=== PATIENT | female | born 1960 | race Caucasian/White ===

== ENCOUNTER 2016-09-12 09:29 | Emergency (ER) | payer OTHER ==
[~2016-09-12] VITALS: Ht 157.5 cm; Wt 87.8 kg
[~2016-09-12 09:29] MED LIST: ABILIFY30 MG PO; ADVAIR 250/501 DISK IH; ALEVE220 M2 PO; AMBIEN CR12.5 MG PO; AMBIEN10 MG PO; ATARAX,VISTARIL25 MG PO; BENZTROPINE ME0.5 MG PO; CLINDAMYCIN HC300 MG PO; CLONAZEPAM1 MG PO; CLONAZEPAM2 MG; COGENTIN2 MG PO; COLACE100 MG PO; COUMADIN,JANTOVE1 MG PO; CYMBALTA60 MG PO; DESYREL100 MG PO; DICLOFENAC SODI75 MG PO; DILAUDID2 MG PO; DOCUSATE SODIU100 MG PO; ENDOCET 5-3251 EACH PO; FEOSOL325 MG PO; FLAGYL500 MG PO; FLOVENT DISKUS1 DISK IH; Flovent 110 mcg IH; GLIPIZIDE5 MG PO; GLUCOPHAGE1000 MG PO; Glucotrol PO; HUMULIN N100 UNIT/1 SQ; HUMULIN R100 UNITS/ SC; HYDROXYZINE PAM50 MG PO; KLONOPIN2 MG PO; LANTUS 10100 UNITS/ SC; LEVAQUIN750 MG PO; LIDODERM 5% P1 PATCH TP; LYRICA75 MG PO; MELOXICAM15 MG PO; MICONAZOLE NITR30 GM TP; NAPROXEN SODIU275 MG PO; NOVOLIN R (UNI1 UNIT SC; NOVOLOG 10100 UNITS/ SC; NovoLIN N (NPH),Humu SC; PERCOCET 5/31 TABLET PO; PRAVASTATIN SOD40 MG PO; PRILOSEC40 MG PO; PRISTIQ100 MG PO; PROAIR HFA8.5 GM IH; PROMETHAZINE HC25 M1 PO; Proventil,Ventolin H IH; RISPERDAL0.5 MG PO; RISPERDAL1 MG PO; Robitussin, Organidi PO; SENOKOT S,PE1 TABLET PO; SPRYCEL70 MG PO; STOOL SOFTENER100 MG PO; TRICOR145 MG PO; Tylenol Regular Stre PO; ZESTRIL,PRINIVI20 MG PO; ZESTRIL40 MG PO; ZOFRAN4 MG PO; Zocor PO; predniSONE PO
[2016-09-12 11:10] LABS: EOSINOPHIL (%) 0.6 % (0-5); EOSINOPHIL COUNT 0.1 K/uL (0-0.3); HEMATOCRIT 37.1 % (36.0-46.0); IMMATURE GRANULOCYTE (%) 0.6 % (0.0-0.7); IMMATURE GRANULOCYTE COUNT 0.1 K/uL; INSTRUMENT ABS NEUTROPHIL CT 9.4 K/uL; LYMPHOCYTE COUNT 1.6 K/uL (1.0-2.8); MCH 25.1 PG (29.0-34.0); MCHC 32.1 G/DL (30.0-36.0); MCV 78.3 FL (83-99); MEAN PLAT.VOLUME 10.8 uM^3 (9.5-12.4); MONOCYTE (%) 9.4 % (3-12); MONOCYTE COUNT 1.2 K/uL (0-0.8); NEUTROPHIL (%) 76.4 % (45-76); NEUTROPHIL COUNT 9.4 K/uL (1.8-6.4); RBC DIS.WIDTH-CV 16.2 % (11.8-14.6); RBC DIS.WIDTH-SD 45.8 % (39-53); RED BLOOD COUNT 4.74 M/uL (3.80-5.20); WHITE BLOOD COUNT 12.3 K/uL (4.1-10.2)
[2016-09-12 11:22] LABS: PLATELET COUNT 266 K/uL (156-360)
[2016-09-12 11:30] LABS: CHLORIDE 104 mEq/L (99-109); POTASSIUM 4.5 mEq/L (3.7-5.4); SODIUM 139 mEq/L (136-147)
[2016-09-12 11:32] LABS: GLUCOSE 201 mg/dL (70-99)
[2016-09-12 11:34] LABS: ANION GAP 11 MEQ/L (2-14); TOTAL BILIRUBIN 0.7 mg/dL (0.0-1.0)
[2016-09-12 11:36] LABS: ALKALINE PHOSPHATASE 129 IU/L (3-129); GFR ESTIMATE (CALCULATED) > 59 mL/min/
[2016-09-12 11:37] LABS: UREA NITROGEN (BUN) 15 mg/dL (9-23)
[2016-09-12 11:39] LABS: LIPASE 20 U/L (1.0-51.0)
[2016-09-12 12:18] LABS: ADD MIUA? YES; BILIRUBIN SMALL; BLOOD NEGATIVE; COLOR YELLOW ((YELLOW)); GLUCOSE (STRIP) 150; KETONES 5; LEUKOCYTES SMALL; NITRITE NEGATIVE; PROTEIN (STRIP) 30; SPECIFIC GRAVITY 1.021 (1.000-1.030); UROBILINOGEN 0.2 MG/DL (0.2-1.0)
[2016-09-12 12:23] LABS: BACTERIA 2+ /HPF; EPITHELIAL CELLS 2+ /HPF; MUCUS TRACE /LPF; RED BLOOD CELLS 0-5 /HPF (0-5); UCUL ADDED? NO; WHITE BLOOD CELLS NONE SEEN /HPF (0-5)
[2016-09-12] MEDS ORDERED: CIPRO500 MG PO ×2 (12:45→13:17)
[2016-09-12] MEDS ORDERED: FLAGYL500 MG PO ×2 (12:45→13:17)
[2016-09-12] MEDS ORDERED: TYLENOL WITH C1 EACH PO (12:45)
[2016-09-12] MEDS ORDERED: CLONAZEPAM1 MG PO (13:01)
[2016-09-12] MEDS ORDERED: LABETALOL HCL100 MG PO (13:02)
[2016-09-12] MEDS ORDERED: ONDANSETRON ODT4 MG PO (13:02)
[2016-09-12] MEDS ORDERED: FUROSEMIDE PO (13:04)
[2016-09-12] MEDS ORDERED: POTASSIUM PO (13:04)
[2016-09-12 13:35] VITALS: BP 152/83
== END 2016-09-12 13:45 | disposition home or self-care (01) ==
LOC: EME 09:29
PROVIDERS: Emergency Medicine
DX: K52.9 Noninfective gastroenteritis and colitis, unspecified (principal); C95.90 Leukemia, unspecified not having achieved remission; I10 Essential (primary) hypertension; E78.5 Hyperlipidemia, unspecified; J45.909 Unspecified asthma, uncomplicated; Z79.4 Long term (current) use of insulin; E11.9 Type 2 diabetes mellitus without complications; Z87.442 Personal history of urinary calculi
CPT/HCPCS: 74176; 80053; 81003; 83690; 85025; 99281; 99285; J1885; J2405; J7030

== ENCOUNTER 2017-06-27 18:04 | Observation (INO) | payer OTHER ==
[~2017-06-27] VITALS: Ht 157.5 cm; Wt 89.9 kg
[~2017-06-27 18:04] MED LIST changes: +CIPRO500 MG PO; +FUROSEMIDE PO; +LABETALOL HCL100 MG PO; +ONDANSETRON ODT4 MG PO; +POTASSIUM PO; +TYLENOL WITH C1 EACH PO
[2017-06-27 20:11] LABS: HEMATOCRIT 40.3 % (36.0-46.0); HEMOGLOBIN 12.9 G/DL (11.9-15.5); MCH 25.5 PG (29.0-34.0); MCV 79.6 FL (83-99); PLATELET COUNT 227 K/uL (156-360); RBC DIS.WIDTH-CV 15.5 % (11.8-14.6); RBC DIS.WIDTH-SD 44.5 % (39-53); RED BLOOD COUNT 5.06 M/uL (3.80-5.20); WHITE BLOOD COUNT 10.3 K/uL (4.1-10.2)
[2017-06-27 20:36] LABS: APPEARANCE CLEAR ((CLEAR)); BILIRUBIN NEGATIVE; BLOOD NEGATIVE; COLOR YELLOW ((YELLOW)); GLUCOSE (STRIP) NEGATIVE; KETONES NEGATIVE; LEUKOCYTES TRACE; NITRITE NEGATIVE; PROTEIN (STRIP) NEGATIVE; SPECIFIC GRAVITY 1.009 (1.000-1.030); UROBILINOGEN 0.2 MG/DL (0.2-1.0)
[2017-06-27 20:41] LABS: CHLORIDE 102 mEq/L (99-109); POTASSIUM 4.9 mEq/L (3.7-5.4); SODIUM 137 mEq/L (136-147)
[2017-06-27 20:42] LABS: GLUCOSE 139 mg/dL (70-99)
[2017-06-27 20:46] LABS: CREATININE 1.1 mg/dL (0.6-1.3); GFR ESTIMATE (CALCULATED) 55 mL/min/; SERUM ETHYL ALCOHOL < 10 mg/dL
[2017-06-27 20:47] LABS: UREA NITROGEN (BUN) 22 mg/dL (9-23)
[2017-06-27 20:49] LABS: AMPHETAMINE NEGATIVE (500 ng/mL); BARBITURATES NEGATIVE (200 ng/mL); BENZODIAZEPINES NEGATIVE (150 ng/mL); BUPRENORPHINE NEGATIVE (10 ng/mL); COCAINE NEGATIVE (150 ng/mL); METHADONE NEGATIVE (200 ng/mL); METHAMPHETAMINE NEGATIVE (500 ng/mL); OPIATES (MORPHINE) NEGATIVE (100 ng/mL); OXYCODONE PRESUMPTIVE POSITIVE (100 ng/mL); PHENCYCLIDINE NEGATIVE (25 ng/mL); PROPOXYPHENE NEGATIVE (300 ng/mL); THC CANNABINOIDS NEGATIVE (50 ng/mL); TRICYCLIC ANTIDEPRESSANTS PRESUMPTIVE POSITIVE (300 ng/mL)
[2017-06-27 21:07] LABS: BACTERIA NONE SEEN /HPF; EPITHELIAL CELLS RARE /HPF; HYALINE CASTS 0-5 /LPF; MUCUS TRACE /LPF; RED BLOOD CELLS 0-5 /HPF (0-5); UCUL ADDED? NO; WHITE BLOOD CELLS 0-5 /HPF (0-5)
[2017-06-28] VITALS (9 sets, daily range): BP systolic 80–128; BP diastolic 45–72
[2017-06-28] MEDS ORDERED: FLEXERIL5 MG PO (13:53)
[2017-06-28] MEDS ORDERED: OXYCODONE HCL10 MG PO (13:53)
[2017-06-28] MEDS ORDERED: LYRICA100 MG PO (13:54)
[2017-06-28] MEDS ORDERED: ZANAFLEX4 M1 PO (13:54)
[2017-06-28] MEDS ORDERED: FLOVENT DISKUS1 DIS1 IH (13:54)
[2017-06-28] MEDS ORDERED: OXYMORPHONE HCL20 MG PO (13:54)
[2017-06-28] MEDS ORDERED: AMBIEN10 MG PO (13:55)
[2017-06-28] MEDS ORDERED: PRISTIQ50 MG PO (13:56)
[2017-06-28] MEDS ORDERED: VENTOLIN HFA18 GM IH (13:56)
[2017-06-28] MEDS ORDERED: FLONASE16 G1 BOTH NARES (13:57)
[2017-06-28] MEDS ORDERED: ENDOCET 5-3251 EACH PO (13:59)
[2017-06-28] MEDS ORDERED: ONDANSETRON ODT4 MG PO (14:00)
[2017-06-28] MEDS ORDERED: KLONOPIN1 MG PO (14:00)
[2017-06-28] MEDS ORDERED: RISPERDAL1 MG PO (14:00)
[2017-06-28] MEDS ORDERED: ALLEGRA ALLERG180 MG PO (14:01)
[2017-06-28] MEDS ORDERED: SINGULAIR10 MG PO (14:02)
[2017-06-28] MEDS ORDERED: ZESTRIL40 MG PO (14:02)
[2017-06-28] MEDS ORDERED: PRILOSEC20 MG PO (14:02)
[2017-06-28] MEDS ORDERED: SPRYCEL70 MG PO (14:02)
[2017-06-28] MEDS ORDERED: NOVOLOG 10100 UNITS/ SC (14:03)
[2017-06-28] MEDS ORDERED: VISTARIL50 MG PO (14:03)
[2017-06-28] MEDS ORDERED: LABETALOL HCL100 MG PO (14:03)
[2017-06-29 03:50] VITALS: BP 138/71
[2017-06-29 08:01] VITALS: BP 136/74
[2017-06-29 11:35] VITALS: BP 166/75
== END 2017-06-29 13:13 | disposition left against medical advice (07) ==
LOC: EME 18:04 → 4EAST 22:27 → EDOF 22:27 → ENRESERV 22:28 → 4EAST 23:57
PROVIDERS: Emergency Medicine; Hospitalist
DX: T40.2X1A Poisoning by other opioids, accidental (unintentional), initial encounter (principal); G89.29 Other chronic pain; Z79.891 Long term (current) use of opiate analgesic; Z53.29 Procedure and treatment not carried out because of patient's decision for other reasons; E11.65 Type 2 diabetes mellitus with hyperglycemia; Z79.4 Long term (current) use of insulin; G47.33 Obstructive sleep apnea (adult) (pediatric); Z90.49 Acquired absence of other specified parts of digestive tract; C92.10 Chronic myeloid leukemia, BCR/ABL-positive, not having achieved remission; I10 Essential (primary) hypertension; E78.5 Hyperlipidemia, unspecified; F31.9 Bipolar disorder, unspecified; F41.9 Anxiety disorder, unspecified; Z86.19 Personal history of other infectious and parasitic diseases; Z90.710 Acquired absence of both cervix and uterus; Z96.651 Presence of right artificial knee joint; Z88.0 Allergy status to penicillin
CPT/HCPCS: 71020; 80048; 81003; 82948; 83605; 85027; 87040; 93005; 94640; 99202; 99281; 99285; G0378; G0480; J1650; J1815; J2310; J7030; J7120